=== PATIENT | male | born 1965 ===

== ENCOUNTER 2016-09-11 12:53 | Inpatient (IN) | payer OTHER ==
[2016-09-11] MEDS ORDERED: Sodium Chloride 0.9% 1,000 ML IV ONE (14:45)
--- NOTE | 2016-09-11 14:49 | C.PDOC ---
History Of Present Illness 51 y/o male presents to ED with c/o right sided chest pain / RUQ abdominal pain associated with diarrhea over the past 4-5 days. Patient reports he ate some greasy foods which he thinks may have caused the pain. Patient states pain is worse with deep breaths and movement, and radiates to the right shoulder. Denies fever, trauma, nausea, vomiting, or other associated symptoms. Time Seen by Provider: 09/11/16 13:37 Chief Complaint (Nursing): Rib Injury History Per: Patient History/Exam Limitations: no limitations Onset/Duration Of Symptoms: Days Current Symptoms Are (Timing): Still Present Pain Scale Rating Of: 5 Location Of Pain/Discomfort: RUQ Radiation Of Pain To:: Other (right shoulder) Quality Of Discomfort: "Pain" Associated Symptoms: denies: Fever, Chills, Diarrhea, Urinary Symptoms Exacerbating Factors: None Alleviating Factors: None Recent travel outside of the [place]: Yes (recent travel from [place] 3 days ago) Past Medical History Reviewed: Historical Data, Nursing Documentation, Vital Signs Vital Signs: Last Vital Signs Temp 98.3 F 09/11/16 17:51 Pulse 71 09/11/16 17:51 Resp 20 09/11/16 17:51 BP 126/91 H 09/11/16 17:51 Pulse Ox 96 09/11/16 17:56 - Medical History PMH: Hypercholesterolemia, Hyperlipidemia Surgical History: No Surg Hx Family History: States: No Known Family Hx - Social History Hx Tobacco Use: No Hx Alcohol Use: No Hx Substance Use: No - Immunization History Hx Tetanus Toxoid Vaccination: No Hx Influenza Vaccination: No Hx Pneumococcal Vaccination: No Review Of Systems Except As Marked, All Systems Reviewed And Found Negative. Constitutional: Negative for: Fever, Chills Cardiovascular: Negative for: Chest Pain Respiratory: Negative for: Cough, Shortness of Breath, Wheezing Gastrointestinal: Positive for: Abdominal Pain, Diarrhea. Negative for: Nausea , Vomiting Musculoskeletal: Positive for: Shoulder Pain Skin: Negative for: Rash Neurological: Negative for: Headache, Dizziness Physical Exam - Physical Exam Appears: Non-toxic, No Acute Distress Skin: Normal Color, Warm, Dry, No Rash Head: Atraumatic, Normacephalic Eye(s): bilateral: Normal Inspection, PERRL, EOMI Oral Mucosa: Moist Throat: No Erythema, No Exudate Neck: Normal ROM, No Midline Cervical Tenderness, No Paracervical Tenderness, Supple Chest: Symmetrical, No Tenderness Cardiovascular: Rhythm Regular, No Friction Rub, No Murmur Respiratory: Normal Breath Sounds, No Rales, No Rhonchi, No Wheezing Gastrointestinal/Abdominal: Soft, Tenderness (mild to moderate RUQ tenderness - questionable Renner's sign), No Distention, No Guarding, No Rebound, Other Back: Normal Inspection, No CVA Tenderness Extremity: Normal ROM, No Calf Tenderness, Capillary Refill (< 2 sec. ), No Swelling Pulses: Left Dorsalis Pedis: Normal, Right Dorsalis Pedis: Normal Neurological/Psych: Oriented x3, Normal Speech, Normal Cognition, Normal Motor, Normal Sensation Gait: Steady ED Course And Treatment - Laboratory Results Result Diagrams: 09/11/16 15:03 09/11/16 15:03 ECG: Interpreted By Me ECG Rhythm: Sinus Rhythm Interpretation Of ECG: normal axis, normal ST- T waves Rate From EC (bpm) O2 Sat by Pulse Oximetry: 96 (RA) Pulse Ox Interpretation: Normal - Other Rad Chest XR X-Ray: Viewed By Me, Read By Radiologist Interpretation: Poor inspiration with low lung volumes, mild crowded bronchovascular markings and mild bibasilar atelectasis. There is also a more discrete area of discordant with subsegmental atelectasis in the right lung base. . Slight blunting right CP angle could be technical however localized pleural thickening or small effusion not excluded. - CT Scan/US RUQ Ultrasound Other Rad Studies (CT/US): Read By Radiologist, Radiology Report Reviewed CT/US Interpretation: FINDINGS: LIVER: Measures 18.9 cm in length. Echogenic liver may be seen in setting of hepatic parenchymal disease or fatty infiltration. No focal hepatic mass identified. The main portal vein appears patent with normal directional flow. No intrahepatic bile duct dilatation. GALLBLADDER: No gallstones. No gallbladder wall thickening or pericholecystic edema. Negative sonographic Renner's sign as assessed by the manager fixed income. COMMON BILE DUCT: Measures 4 mm. No stones. No dilatation. PANCREAS: Not well-visualized. RIGHT KIDNEY: Measures 11.9 x 5.1 x 5.6 cm. Mild fullness of the right renal collecting system. No obstructing calculus identified. AORTA: Limited visualization appears grossly unremarkable. IVC: Limited visualization appears grossly unremarkable. OTHER FINDINGS: None . IMPRESSION : Echogenic liver may be seen in setting of hepatic parenchymal disease or fatty infiltration. Mild fullness of the right renal collecting system. No obstructing calculus identified. Progress Note: Treated with Pepcid, Toradol, and IVFs. CxR, bloodwork ordered. RUQ ultrasound ordered. Medical Decision Making Medical Decision Making: The patient was placed on 2L NC O2 and Aspirin orderd. On re-exam, the patient reports that he feels improved. Elevated Troponin, will admit for NSTEMI Case discussed with Dr. Carina Haney who agrees to admit the patient. Disposition - Disposition Disposition: HOSPITALIZED Disposition Time: 17:50 Condition: FAIR - POA Present On Arrival: None - Clinical Impression Clinical Impression: NSTEMI (non-ST elevated myocardial infarction), Atypical chest pain - PA / CHEMICAL ENGRAVER / Resident Statement MD/DO has reviewed & agrees with the documentation as recorded. - Scribe Statement The provider has reviewed the documentation as recorded by the Scribe Tez Veliz All medical record entries made by the Harryibe were at my direction and personally dictated by me. I have reviewed the chart and agree that the record accurately reflects my personal performance of the history, physical exam, medical decision making, and the department course for this patient. I have also personally directed, reviewed, and agree with the discharge instructions and disposition.
[2016-09-11] MEDS ORDERED: Sodium Chloride 0.9% 1,000 ML ONE (14:51)
[2016-09-11 15:07] LABS: BASO % 0.1 % (0.0-2.0); EOS # 0.1 K/uL (0.0-0.7); LYMPH # 1.2 K/uL (1.0-4.3); LYMPH % 9.6 % (20.0-40.0); MEAN CELL VOLUME 90.2 fL (80.0-94.0); MEAN CORPUSCULAR HEMOGLOBIN 29.9 pg (27.0-31.0); MEAN CORPUSCULAR HGB CONC 33.2 g/dL (33.0-37.0); MEAN PLATELET VOLUME 7.9 fL (7.2-11.7); MONO # 0.8 K/uL (0.0-0.8); MONO % 6.7 % (0.0-10.0); PLATELET COUNT 309 K/uL (130-400); WHITE BLOOD COUNT 12.2 K/uL (4.8-10.8)
[2016-09-11 15:29] LABS: NEUTROPHIL 92 % (50-75); TOTAL CELLS COUNTED 100
[2016-09-11 15:31] LABS: CHLORIDE 99 mmol/L (98-107)
[2016-09-11 15:32] LABS: POTASSIUM 4.1 mmol/L (3.6-5.2); SODIUM 136 mmol/L (132-148)
[2016-09-11 15:34] LABS: ALB/GLOB RATIO 1.1 (1.0-2.1); ALKALINE PHOSPHATASE 59 U/L (38-126); AST/SGOT 32 U/L (17-59); BILIRUBIN,TOTAL 1.2 mg/dL (0.2-1.3); BLOOD UREA NITROGEN 19 mg/dL (9-20); CARBON DIOXIDE 26 mmol/L (22-30); GFR AFRICAN-AMERICAN > 60; TOTAL PROTEIN 6.9 g/dL (6.3-8.3)
[2016-09-11 15:35] LABS: ALT/SGPT 33 U/L (21-72); CALCIUM 8.3 mg/dl (8.6-10.4); GLUCOSE,RANDOM 97 mg/dL (75-110)
--- NOTE | 2016-09-11 15:57 | US ---
HISTORY: RUQ pain, r/o blayne COMPARISON: None available. TECHNIQUE: Sonographic evaluation of the right upper quadrant of the abdomen. FINDINGS: LIVER: Measures 18.9 cm in length. Echogenic liver may be seen in setting of hepatic parenchymal disease or fatty infiltration. No focal hepatic mass identified. The main portal vein appears patent with normal directional flow. No intrahepatic bile duct dilatation. GALLBLADDER: No gallstones. No gallbladder wall thickening or pericholecystic edema. Negative sonographic Renner's sign as assessed by the tower dragline operator. COMMON BILE DUCT: Measures 4 mm. No stones. No dilatation. PANCREAS: Not well-visualized. RIGHT KIDNEY: Measures 11.9 x 5.1 x 5.6 cm. Mild fullness of the right renal collecting system. No obstructing calculus identified. AORTA: Limited visualization appears grossly unremarkable. IVC: Limited visualization appears grossly unremarkable. OTHER FINDINGS: None . IMPRESSION: Echogenic liver may be seen in setting of hepatic parenchymal disease or fatty infiltration. Mild fullness of the right renal collecting system. No obstructing calculus identified.
--- NOTE | 2016-09-11 16:06 | RAD ---
PROCEDURE: CHEST RADIOGRAPH, 1 VIEW HISTORY: abd pain COMPARISON: None available. FINDINGS: LUNGS: Poor inspiration with low lung volumes, mild crowded bronchovascular markings and mild bibasilar atelectasis. There is also a more discrete area of discordant with subsegmental atelectasis in the right lung base. PLEURA: Slight blunting right CP angle could be technical however possibility of localized pleural thickening or tiny effusion not excluded. . CARDIOVASCULAR: Heart size is borderline enlarged OSSEOUS STRUCTURES: No significant abnormalities. VISUALIZED UPPER ABDOMEN: Normal. OTHER FINDINGS: None. IMPRESSION: Poor inspiration with low lung volumes, mild crowded bronchovascular markings and mild bibasilar atelectasis. There is also a more discrete area of discordant with subsegmental atelectasis in the right lung base. . Slight blunting right CP angle could be technical however localized pleural thickening or small effusion not excluded.
[2016-09-11] MEDS ORDERED: Enoxaparin 80 mg Syringe SC STA (19:29)
[2016-09-12 07:48] LABS: INR 1.2
[2016-09-12] MEDS: Pantoprazole 40 mg EC Tab PO SCH (09:53)
[2016-09-12] MEDS ORDERED: Enoxaparin 40 mg Syringe SC SCH (10:00)
--- NOTE | 2016-09-12 11:45 | CP.PCM.HP ---
Past Patient History - Past Medical History & Family History Past Medical History?: Yes - Past Social History Smoking Status: Never Smoked - CARDIAC Hx Hypercholesterolemia: Yes - INTEGUMENTARY Hx Dermatological Problems: Yes Other/Comment: HAIR TRANSPLANT - MUSCULOSKELETAL/RHEUMATOLOGICAL Hx Falls: No - GASTROINTESTINAL Hx Gastroesophageal Reflux: Yes - PSYCHIATRIC Hx Substance Use: No - SURGICAL HISTORY Hx Surgeries: Yes Hx Cardiac Catheterization: Yes Other/Comment: Cardiac Cath - ANESTHESIA Hx Anesthesia: Yes Hx Anesthesia Reactions: No Meds Allergies/Adverse Reactions: Allergies Allergy/AdvReac Type Severity Reaction Status Date / Time No Known Allergies Allergy Verified 07/26/15 13:53 Physical Exam - Constitutional Appears: Well - Head Exam Head Exam: ATRAUMATIC, NORMAL INSPECTION, NORMOCEPHALIC - Eye Exam Eye Exam: EOMI, Normal appearance, PERRL Pupil Exam: NORMAL ACCOMODATION, PERRL - ENT Exam ENT Exam: Mucous Membranes Moist, Normal Exam - Neck Exam Neck exam: Positive for: Normal Inspection - Respiratory Exam Respiratory Exam: Decreased Breath Sounds - Cardiovascular Exam Cardiovascular Exam: REGULAR RHYTHM, +S1, +S2 - GI/Abdominal Exam GI & Abdominal Exam: Diminished Bowel Sounds, Soft - Rectal Exam Rectal Exam: Deferred Results - Vital Signs Recent Vital Signs: Last Vital Signs Temp 98.4 F 09/12/16 07:05 Pulse 83 09/12/16 08:53 Resp 20 09/12/16 07:05 BP 149/90 09/12/16 07:05 Pulse Ox 97 09/12/16 07:05 - Labs Result Diagrams: 09/11/16 15:03 09/11/16 15:03 Labs: Laboratory Results - last 24 hr 09/12/16 09/12/16 09/12/16 01:00 07:27 08:56 PT 12.9 H INR 1.2 APTT 32 Total Creatine Kinase 26 L 24 L CK-MB (Mass) 0.77 0.41 Troponin I, Quant 0.2440 H* 0.1690 H*
--- NOTE | 2016-09-12 14:50 | CP.PCM.CON ---
<See Thorpe - Last Filed: 09/12/16 14:47> History of Present Illness - History of Present Illness History of Present Illness: Consult note for Dr. Mccormack Reason for consult: NSTEMI 82 y/o M with PMH of HLD presents to the hospital after a 4 day history of right -sided chest pain and abdominal pain. Pt reports feeling the pain mainly after eating greasy foods. Pain was also exacerbated with deep breaths and movement. Pt has never had this pain in the past. The pain began to get worse over the last several days and began to radiate to his right shoulder. Pt did not use any medication to help with his pain. Of note, pt finished his Crestor last month and has since not been using any medication. Pt currently denies CP, SOB, N/V/D, dysuria, fever, chills, syncope, dizziness, arthralgias, myalgias. PMH: HLD Surgical Hx: None Social Hx: Denies alcohol, tobacco, or ilicit drug use Medication: Crestor 20 mg daily Allergies: NKDA Review of Systems - Review of Systems Review of Systems: As per HPI. Past Patient History - Past Medical History & Family History Past Medical History?: Yes - Past Social History Smoking Status: Never Smoked - CARDIAC Hx Hypercholesterolemia: Yes - INTEGUMENTARY Hx Dermatological Problems: Yes Other/Comment: HAIR TRANSPLANT - MUSCULOSKELETAL/RHEUMATOLOGICAL Hx Falls: No - GASTROINTESTINAL Hx Gastroesophageal Reflux: Yes - PSYCHIATRIC Hx Substance Use: No - SURGICAL HISTORY Hx Surgeries: Yes Hx Cardiac Catheterization: Yes Other/Comment: Cardiac Cath - ANESTHESIA Hx Anesthesia: Yes Hx Anesthesia Reactions: No Meds Allergies/Adverse Reactions: Allergies Allergy/AdvReac Type Severity Reaction Status Date / Time No Known Allergies Allergy Verified 07/26/15 13:53 - Medications Medications: Current Medications Aspirin (Aspirin) 325 mg PO DAILY [facility] Last Admin: 09/12/16 09:54 Dose: 325 mg Clopidogrel Bisulfate (Plavix) 75 mg PO DAILY [facility] Last Admin: 09/12/16 09:53 Dose: 75 mg Enoxaparin Sodium (Lovenox) 40 mg SC DAILY [facility] Last Admin: 09/12/16 09:41 Dose: Not Given Pantoprazole Sodium (Protonix Ec Tab) 40 mg PO DAILY [facility] Last Admin: 09/12/16 09:53 Dose: 40 mg Ticagrelor (Brilinta) 90 mg PO BID [facility] Last Admin: 09/12/16 09:54 Dose: 90 mg Physical Exam - Constitutional Appears: Well, No Acute Distress - Head Exam Head Exam: ATRAUMATIC, NORMAL INSPECTION, NORMOCEPHALIC - ENT Exam ENT Exam: Mucous Membranes Moist - Respiratory Exam Respiratory Exam: Clear to Auscultation Bilateral, NORMAL BREATHING PATTERN. absent: Rales, Rhonchi - Cardiovascular Exam Cardiovascular Exam: RRR, +S1, +S2 - GI/Abdominal Exam GI & Abdominal Exam: Normal Bowel Sounds. absent: Tenderness - Extremities Exam Extremities exam: Positive for: normal inspection. Negative for: calf tenderness - Neurological Exam Neurological exam: Alert, Oriented x3 - Skin Skin Exam: Intact, Normal Color, Warm Results - Vital Signs Recent Vital Signs: Last Vital Signs Temp 99.6 F 09/12/16 13:15 Pulse 78 09/12/16 13:15 Resp 18 09/12/16 13:15 BP 156/95 H 09/12/16 13:15 Pulse Ox 96 09/12/16 13:15 - Labs Result Diagrams: 09/11/16 15:03 09/11/16 15:03 Labs: Laboratory Results - last 24 hr 09/12/16 09/12/16 09/12/16 01:00 07:27 08:56 PT 12.9 H INR 1.2 APTT 32 Total Creatine Kinase 26 L 24 L CK-MB (Mass) 0.77 0.41 Troponin I, Quant 0.2440 H* 0.1690 H* Assessment & Plan (1) NSTEMI (non-ST elevated myocardial infarction) Assessment and Plan: Troponins elevated on admission, trending downward at this time EKG with NSR, no ST abnormalities Pt will undergo cardiac catheterization to further evaluate for CAD NPO Status: Acute <Delfino Mccormack - Last Filed: 09/14/16 10:36> Results - Vital Signs Recent Vital Signs: Last Vital Signs Temp 98.4 F 09/13/16 07:05 Pulse 70 09/13/16 08:00 Resp 20 09/13/16 07:05 BP 130/82 09/13/16 07:05 Pulse Ox 97 09/13/16 07:05 - Labs Result Diagrams: 09/13/16 11:27 09/13/16 11:27 Labs: Laboratory Results - last 24 hr 09/13/16 09/13/16 11:27 11:27 WBC 9.8 RBC 4.89 Hgb 14.7 Hct 43.8 MCV 89.4 MCH 30.1 MCHC 33.7 RDW 12.9 Plt Count 290 MPV 7.6 Neut % (Auto) 75.3 H Lymph % (Auto) 12.3 L [place] % (Auto) 10.3 H Eos % (Auto) 1.8 Baso % (Auto) 0.3 Neut # 7.4 H Lymph # 1.2 [place] # 1.0 H Eos # 0.2 Baso # 0.0 Sodium 136 Potassium 3.5 L Chloride 101 Carbon Dioxide 24 Anion Gap 15 BUN 17 Creatinine 0.8 Est GFR ( Amer) > 60 Est GFR (Non-Af Amer) > 60 Random Glucose 114 H Calcium 8.0 L Total Bilirubin 0.6 AST 16 L D ALT 30 Alkaline Phosphatase 62 Total Protein 5.9 L Albumin 2.8 L D Globulin 3.1 Albumin/Globulin Ratio 0.9 L Attending/Attestation - Attestation I have personally seen and examined this patient.: Yes I have fully participated in the care of the patient.: Yes I have reviewed all pertinent clinical information: Yes Notes (Text): 09/14/16 10:16 Pt for cardiac cath need cta to rule out pe will also follow up troponin
[2016-09-12 16:00] VITALS: RESP 20
[2016-09-12] MEDS: Sodium Chloride 0.9% 500 ML IV SCH (16:11)
[2016-09-12] MEDS ORDERED: Iodixanol 320 MG/ML 100 ML BOTTLE IV ONE (16:55)
--- NOTE | 2016-09-12 19:13 | CARDCATH ---
PROCEDURE DATE: 09/12/2016 The patient is a 51-year-old Syrian male who arrived from [place] recently after he went to have a hair transplant. He presented because of right-sided abdominal pain. Three sets of troponins were elevated. Cardiac catheterization was recommended. Initially Dr. Rudolph was called; however, I was s ubsequently called because of the unavailability of Dr. Rudolph. The patient was fully evaluated by me. The procedure and its risks were fully explained to the patient who understood and agreed for the p rocedure. PROCEDURE: After local infiltration with 1% lidocaine a 6-Kenyan sheath was placed in in the right f emoral artery. Left and right coronary angiography was performed with 6-Kenyan JL4 and JR4 diagnosti c catheters. Left ventriculogram and aortogram were performed with 6-Kenyan pigtail catheter. The p atient tolerated the procedure well without any complications. ANGIOGRAPHIC FINDINGS: Selective injection of the left coronary artery revealed left main to be a no rmal vessel. The left main trifurcated into a medium sized LAD, medium sized ramus and a medium size d circumflex artery. Other than insignificant ostial narrowing of the ramus intermedius branch, the rest of the left coronary circulation was angiographically unremarkable. Selective injection of the right coronary artery revealed a medium-sized dominant vessel. This was angiographically unremarkabl e. Left ventriculogram was performed in PEREZ projection revealed borderline ejection fraction, which was estimated at 50%. Aortography performed in RICHARD projection. It revealed normal aortic root size. There was no aortic dissection. CONCLUSION: Unremarkable coronary circulation and borderline ejection fraction. RECOMMENDATIONS: A CT angio of the chest is recommended to rule out pulmonary embolus in view of larisa mars's recent transatlantic flight and the fact that he was diagnosed with DVT last year. Bebo Blake MD cc: [id number] TT: 09/12/2016 19:12:22 carlos
--- NOTE | 2016-09-12 21:47 | CT ---
EXAM: CT Angiography Chest With Intravenous Contrast CLINICAL HISTORY: 51 years old, male; Pain; Chest wall pain; Additional info: R/O pe TECHNIQUE: Axial computed tomographic angiography images of the chest with intravenous contrast using pulmonary embolism protocol. This CT exam was performed using one or more of the following dose reduction techniques: automated exposure control, adjustment of the mA and/or kV according to patient size, and/or use of iterative reconstruction technique. MIP reconstructed images were created and reviewed. Coronal and sagittal reformatted images were created and reviewed. CONTRAST: 100 mL of visipaque 320 administered intravenously. COMPARISON: No relevant prior studies available. FINDINGS: Pulmonary arteries: No pulmonary embolism. Flow artifact is identified within the left main pulmonary artery. Aorta: No thoracic aortic aneurysm. Lungs: No mass. Consolidation within the right lower lobe. Pleural spaces: Small bilateral pleural effusions, (right greater than left) with adjacent compressive atelectasis. No pneumothorax. Heart: The heart is enlarged, without significant pericardial effusion. No evidence of right heart dysfunction. Bones: No acute fracture. Lymph nodes: Minimally enlarged lymph nodes are identified within the mediastinum, a nonspecific finding. Within the upper abdomen: The liver is enlarged. No stones are identified within the gallbladder. No peripancreatic inflammation. IMPRESSION: No pulmonary embolism. Right lower lobe consolidation. Small bilateral pleural effusions (right greater than left) with adjacent compressive atelectasis.
[2016-09-12] MEDS: Enoxaparin 60 mg Syringe SC SCH (23:16)
[2016-09-13] MEDS: Sodium Chloride 0.9% 500 ML IV SCH ×2 (01:00→08:00)
[2016-09-13] MEDS ORDERED: Morphine 4 MG/ML VIAL IV STA (02:42)
[2016-09-13 08:49] VITALS: BP 130/82; TEMP 98.4; O2SAT 97
--- NOTE | 2016-09-13 09:01 | CP.PCM.PN ---
<See Thorpe - Last Filed: 09/13/16 08:58> Subjective - Date & Time of Evaluation Date of Evaluation: 09/13/16 Time of Evaluation: 08:59 - Subjective Subjective: Cardiology Progress Note for Dr. Mccormack Pt seen and examined at bedside. Pt underwent cardiac catheterization yesterday. Pt doing well overnight, with no acute complaints. Pt does still complain of RUQ pain that is intermittent. Pt received an abdominal US on admission that was unremarkable. Denies CP, SOB, N/V/D, fever, chills. Objective - Vital Signs/Intake and Output Vital Signs (last 24 hours): Temp Pulse Resp BP Pulse Ox 98.4 F 75 20 130/82 97 09/13/16 07:05 09/13/16 07:05 09/13/16 07:05 09/13/16 07:05 09/13/16 07:05 Intake and Output: 09/13/16 09/13/16 06:59 18:59 Intake Total 480 Balance 480 - Medications Medications: Current Medications Aspirin (Aspirin) 325 mg PO DAILY [facility] Last Admin: 09/12/16 09:54 Dose: 325 mg Enoxaparin Sodium (Lovenox) 60 mg SC Q12 [facility] Last Admin: 09/12/16 23:16 Dose: 60 mg Sodium Chloride (Sodium Chloride 0.9%) 500 mls @ 60 mls/hr IV .Q8H20M [facility] Last Admin: 09/13/16 01:00 Dose: 60 mls/hr Ibuprofen (Motrin Tab) 400 mg PO Q6H PRN PRN Reason: Pain, moderate (4-7) Morphine Sulfate (Morphine) 2 mg IV ONCE [facility] Last Admin: 09/13/16 02:47 Dose: 2 mg Pantoprazole Sodium (Protonix Ec Tab) 40 mg PO DAILY [facility] Last Admin: 09/12/16 09:53 Dose: 40 mg - Labs Labs: PT 12.9 SECONDS (9.7-12.2) H 09/12/16 07:27 INR 1.2 09/12/16 07:27 APTT 32 SECONDS (21-34) 09/12/16 07:27 - Constitutional Appears: Well, No Acute Distress - Head Exam Head Exam: ATRAUMATIC, NORMAL INSPECTION, NORMOCEPHALIC - Respiratory Exam Respiratory Exam: Clear to Ausculation Bilateral, NORMAL BREATHING PATTERN. absent: Rhonchi - Cardiovascular Exam Cardiovascular Exam: RRR, +S1, +S2 - GI/Abdominal Exam GI & Abdominal Exam: Soft, Tenderness (RUQ to palpation), Normal Bowel Sounds - Extremities Exam Extremities Exam: Normal Inspection. absent: Calf Tenderness, Pedal Edema - Neurological Exam Neurological Exam: Alert, Awake, Oriented x3 - Skin Skin Exam: Intact, Normal Color, Warm Assessment and Plan (1) NSTEMI (non-ST elevated myocardial infarction) Assessment & Plan: Cardiac catheterization showed no obstructions along with an EF of 50% Pt also underwent Chest CT for possible PE, which was negative Continue Lovenox BID Continue ASA Ibuprofen added for pain control Status: Acute <Delfino Mccormack - Last Filed: 09/14/16 10:37> Objective - Vital Signs/Intake and Output Vital Signs (last 24 hours): Temp Pulse Resp BP Pulse Ox 98.4 F 70 20 130/82 97 09/13/16 07:05 09/13/16 08:00 09/13/16 07:05 09/13/16 07:05 09/13/16 07:05 - Labs Labs: 09/13/16 11:27 09/13/16 11:27 PT 12.9 SECONDS (9.7-12.2) H 09/12/16 07:27 INR 1.2 09/12/16 07:27 APTT 32 SECONDS (21-34) 09/12/16 07:27 Attending/Attestation - Attestation I have personally seen and examined this patient.: Yes I have fully participated in the care of the patient.: Yes I have reviewed all pertinent clinical information, including history, physical exam and plan: Yes Notes (Text): 09/14/16 10:37 normal coronaries no PE on ct follow up as out pt
[2016-09-13] MEDS: Pantoprazole 40 mg EC Tab PO SCH (09:38)
[2016-09-13] MEDS: Enoxaparin 60 mg Syringe SC SCH (09:40)
[2016-09-13 11:01] VITALS: PULSE 70
[2016-09-13 11:44] LABS: BASO % 0.3 % (0.0-2.0); EOS # 0.2 K/uL (0.0-0.7); EOS % 1.8 % (0.0-4.0); HEMATOCRIT 43.8 % (35.0-51.0); LYMPH # 1.2 K/uL (1.0-4.3); LYMPH % 12.3 % (20.0-40.0); MEAN CELL VOLUME 89.4 fL (80.0-94.0); MEAN CORPUSCULAR HEMOGLOBIN 30.1 pg (27.0-31.0); MEAN CORPUSCULAR HGB CONC 33.7 g/dL (33.0-37.0); MEAN PLATELET VOLUME 7.6 fL (7.2-11.7); MONO % 10.3 % (0.0-10.0); RED CELL DISTRIBUTION WIDTH 12.9 % (11.5-14.5); WHITE BLOOD COUNT 9.8 K/uL (4.8-10.8)
[2016-09-13 12:07] LABS: CHLORIDE 101 mmol/L (98-107); POTASSIUM 3.5 mmol/L (3.6-5.2); SODIUM 136 mmol/L (132-148)
[2016-09-13 12:09] LABS: GFR AFRICAN-AMERICAN > 60
[2016-09-13 12:10] LABS: ALB/GLOB RATIO 0.9 (1.0-2.1); ALKALINE PHOSPHATASE 62 U/L (38-126); ALT/SGPT 30 U/L (21-72); AST/SGOT 16 U/L (17-59); BILIRUBIN,TOTAL 0.6 mg/dL (0.2-1.3); BLOOD UREA NITROGEN 17 mg/dL (9-20); CARBON DIOXIDE 24 mmol/L (22-30); GLUCOSE,RANDOM 114 mg/dL (75-110); TOTAL PROTEIN 5.9 g/dL (6.3-8.3)
--- NOTE | 2016-09-13 15:14 | CP.PCM.PN ---
Subjective - Date & Time of Evaluation Date of Evaluation: 09/13/16 Time of Evaluation: 09:25 - Subjective Subjective: PGY2 Medicine Note - Dr. Laura Haney's service: Patient seen and examined at bedside this AM. Patient reports improved abdominal and chest pain. PAtient says he had this same problem a few years ago and was given aleve and a muscle relaxant which helped him. Patient did not want to wait until afternoon for discharge. Patient aware of risks of leaving including but not limited to pain, chest pain, PR, . Patient encouraged to follow up with PMD. Objective - Vital Signs/Intake and Output Vital Signs (last 24 hours): Temp Pulse Resp BP Pulse Ox 98.4 F 70 20 130/82 97 09/13/16 07:05 09/13/16 08:00 09/13/16 07:05 09/13/16 07:05 09/13/16 07:05 Intake and Output: 09/13/16 09/13/16 06:59 18:59 Intake Total 480 490 Balance 480 490 - Labs Labs: 09/13/16 11:27 09/13/16 11:27 PT 12.9 SECONDS (9.7-12.2) H 09/12/16 07:27 INR 1.2 09/12/16 07:27 APTT 32 SECONDS (21-34) 09/12/16 07:27 - Constitutional Appears: Non-toxic, No Acute Distress - Head Exam Head Exam: NORMAL INSPECTION - Eye Exam Eye Exam: EOMI - ENT Exam ENT Exam: Mucous Membranes Moist - Respiratory Exam Respiratory Exam: Clear to Ausculation Bilateral, NORMAL BREATHING PATTERN. absent: Rales, Rhonchi, Wheezes - Cardiovascular Exam Cardiovascular Exam: REGULAR RHYTHM, +S1, +S2. absent: Gallop, Rubs, Murmur - GI/Abdominal Exam GI & Abdominal Exam: Soft, Normal Bowel Sounds. absent: Tenderness - Extremities Exam Extremities Exam: absent: Pedal Edema - Neurological Exam Neurological Exam: Alert, Awake, Oriented x3 - Psychiatric Exam Psychiatric exam: Normal Affect, Normal Mood - Skin Skin Exam: Normal Color, Warm Assessment and Plan - Assessment and Plan (Free Text) Assessment: (1) Chest Pain Assessment & Plan: Cardiac catheterization showed no obstructions along with an EF of 50% Pt also underwent Chest CT for possible PE, which was negative Continue Lovenox BID Continue ASA Ibuprofen added for pain control Status: Acute (2) Muscle Pain Assessment & Plan: Patient started on Motrin and Flexeril in the hospital but he signed out AMA so he did not get scripts Status: Acute (3) RUQ pain Assessment & Plan: Abd US negative (please see full report) Status: Acute
== END 2016-09-13 11:49 | disposition left against medical advice (07) | DRG 125 ==
LOC: C.ER 12:53 → C.9E 17:54 → C.6T 22:38
PROVIDERS: ADMIT Internal Medicine Nephrology; ATTEND Internal Medicine Nephrology
PROC: 4A023N7 Measurement of Cardiac Sampling and Pressure, Left Heart, Percutaneous Approach (ICD-10-PCS; principal; 2016-09-11)
PROC: B2111ZZ Fluoroscopy of Multiple Coronary Arteries using Low Osmolar Contrast (ICD-10-PCS; 2016-09-11)
PROC: B2151ZZ Fluoroscopy of Left Heart using Low Osmolar Contrast (ICD-10-PCS; 2016-09-11)
DX: R07.9 Chest pain, unspecified (principal); E78.5 Hyperlipidemia, unspecified; R79.89 Other specified abnormal findings of blood chemistry; E78.00 Pure hypercholesterolemia, unspecified; K21.9 Gastro-esophageal reflux disease without esophagitis

== ENCOUNTER → 2018-01-07 22:40 | Emergency (ER) | payer SELFPAY | END | disposition left against medical advice (07) | LOC: C.ER 22:40 | DX: Z02.89 Encounter for other administrative examinations (principal); H57.9 Unspecified disorder of eye and adnexa ==